=== PATIENT | female | born 1965 | race Hispanic/Latino ===

== ENCOUNTER 2017-12-07 07:45 | Emergency (ER) | payer BC, OTHER ==
[2017-12-07 07:51] VITALS: BMI 24.5
[2017-12-07 07:53] VITALS: BP 111/64; PULSE 61; RESP 20; TEMP 98.8; O2SAT 100
--- NOTE | 2017-12-07 08:39 | ED PDOC ---
HPI: Female Pain Time Seen by Provider: 12/07/17 07:51 Chief Complaint (Nursing): Female Genitourinary Chief Complaint (Provider): urinary tract infection History Per: Patient History/Exam Limitations: no limitations Onset/Duration Of Symptoms: Days Current Symptoms Are (Timing): Still Present Quality Of Discomfort: Pressure Associated Symptoms: Urinary Symptoms. denies: Fever, Nausea, Vomiting, Diarrhea, Back Pain Additional Complaint(s): 52 year old female presents to the ED for an evaluation of urinary tract infection onset last night. Reports she feels the urgency to go, tingling sensation and her bladder feels full. Denies nausea, vomiting, back pain, abdominal pain, vaginal discharge or discomfort. Has dysuria. Has had similar several times in the past and was a uti. PMD: Adryan Robles Abnormal Vaginal Bleeding: No Past Medical History Reviewed: Historical Data, Nursing Documentation, Vital Signs Vital Signs: Last Vital Signs Temp 98.8 F 12/07/17 07:51 Pulse 61 12/07/17 07:51 Resp 20 12/07/17 07:51 BP 111/64 12/07/17 07:51 Pulse Ox 100 12/07/17 07:51 - Medical History Other PMH: uti - Surgical History Surgical History: Cholecystectomy - Family History Family History: States: Unknown Family Hx - Social History Current smoker - smoking cessation education provided: No Alcohol: Social Drugs: Denies - Home Medications Home Medications: Ambulatory Orders Medication Instructions Recorded Nitrofurantoin Macrocrystals 100 mg PO BID #10 cap 12/07/17 [Macrobid] - Allergies Allergies/Adverse Reactions: Allergies Allergy/AdvReac Type Severity Reaction Status Date / Time No Known Allergies Allergy Verified 12/07/17 08:08 Review of Systems Constitutional: Negative for: Fever, Weakness Cardiovascular: Negative for: Chest Pain Respiratory: Negative for: Shortness of Breath Gastrointestinal: Negative for: Nausea, Vomiting, Abdominal Pain, Diarrhea Genitourinary Female: Positive for: Dysuria, Frequency. Negative for: Incontinence, Vaginal Discharge, Vaginal Bleeding Musculoskeletal: Negative for: Neck Pain Neurological: Negative for: Weakness, Numbness Physical Exam - Reviewed Nursing Documentation Reviewed: Yes Vital Signs Reviewed: Yes - Physical Exam Appears: Positive for: Non-toxic, No Acute Distress Head Exam: Positive for: ATRAUMATIC, NORMAL INSPECTION, NORMOCEPHALIC Skin: Positive for: Normal Color, Warm, Dry Neck: Positive for: Normal, Painless ROM, Supple Cardiovascular/Chest: Positive for: Regular Rate, Rhythm Respiratory: Positive for: Normal Breath Sounds Gastrointestinal/Abdominal: Positive for: Normal Exam, Bowel Sounds, Soft. Negative for: Tenderness, Guarding, Rebound Back: Positive for: Normal Inspection. Negative for: L CVA Tenderness, R CVA Tenderness Neurologic/Psych: Positive for: Alert, Oriented (x3), Gait (steady). Negative for: Motor/Sensory Deficits - ECG O2 Sat by Pulse Oximetry: 100 (RA) Pulse Ox Interpretation: Normal - Progress ED Course And Treament: 851: Stable. AAOx3. UTI. Similar to past. Rx macrobid. Medical Decision Making Medical Decision Making: Time: 833 Initial Impression: UTI Initial Plan: --ED Urine --Urine Dip --Motrin 600mg --Urine Culture --Urinalysis --Reevaluation Upon provider evaluation patient is medically stable, and requires no further treatment in the ED at this time. Patient will be discharged with Macrobid 100mg for urinary tract infection. Counseling was provided and all questions were answered regarding diagnosis and need for follow up with PMD. There is agreement to discharge plan. Return if symptoms persist or worsen. Scribe Attestation: Documented by Jacquelyn Heath, acting as a scribe for David Salcido MD Provider Scribe Attestation: All medical record entries made by the Scribe were at my direction and personally dictated by me. I have reviewed the chart and agree that the record accurately reflects my personal performance of the history, physical exam, medical decision making, and the department course for this patient. I have also personally directed, reviewed, and agree with the discharge instructions and disposition. Disposition - Clinical Impression Clinical Impression: Urinary tract infection - Patient ED Disposition Is Patient to be Admitted: No - Disposition Referrals: [facility] [Outside] - 12/08/17 Disposition: Routine/Home Disposition Time: 08:45 Condition: STABLE Additional Instructions: Return if not better in 3 days. Prescriptions: Nitrofurantoin Macrocrystals [Macrobid] 100 mg PO BID #10 cap Instructions: Urinary Tract Infection, Adult (DC) Forms: [facility] (Kinyarwanda)
[2017-12-07 09:17] LABS: SQUAMOUS EPITHIAL 18 /hpf (0-5); URINE AMORPHOUS SEDIMENT RARE /ul (<OCC); URINE BACTERIA RARE (<OCC); URINE BILIRUBIN NEGATIVE (NEGATIVE); URINE BLOOD MODERATE (NEGATIVE); URINE CLARITY CLOUDY (Clear); URINE COLOR AMBER (YELLOW); URINE GLUCOSE (UA) NEG (Normal); URINE LEUKOCYTE ESTERASE SMALL Leu/uL (Negative); URINE PROTEIN 100 mg/dL (NEGATIVE)
== END 2017-12-07 08:54 | disposition home or self-care (01) ==
LOC: H.ER 07:45
DX: N39.0 Urinary tract infection, site not specified (principal)